=== PATIENT | female | born 1985 | race Caucasian/White ===

== ENCOUNTER 2020-08-29 20:02 | Emergency (ER) | payer OTHER | END 2020-08-29 23:43 | disposition home or self-care (01) | LOC: ED 20:02 | DX: N93.8 Other specified abnormal uterine and vaginal bleeding (principal); Z88.5 Allergy status to narcotic agent | CPT/HCPCS: 80053; 81001; 83690; 84703; 85025; 85610; 85730; 99284 ==

== ENCOUNTER 2021-10-02 08:14 | Emergency (ER) | payer OTHER ==
[~2021-10-02] VITALS: Ht 170.2 cm; Wt 77.1 kg
[2021-10-02] MEDS ORDERED: PREDNISONE20 MG PO (11:03)
--- NOTE | 2021-10-04 15:56 | EKG ---
[facility] [address] [place] [address] Signed Normal sinus rhythm with sinus arrhythmia Normal ECG No previous ECGs available Confirmed by CATA CASTELLANOS MD ([id number]) on 10/04/2021 3:56:43 PM Electronically Signed By: CATA CASTELLANOS MD 10/04/21 1556 PATIENT NAME: KALA TAYLOR Electrocardiogram DATE OF : 83 PHYSICIAN: CATA CASTELLANOS MD REPORT #: [id number] REPORT IS CONFIDENTIAL AND NOT TO BE RELEASED WITHOUT AUTHORIZATION
== END 2021-10-02 11:44 | disposition home or self-care (01) ==
LOC: ED 08:14
DX: J45.909 Unspecified asthma, uncomplicated (principal); Z86.718 Personal history of other venous thrombosis and embolism; Z86.711 Personal history of pulmonary embolism; Z88.5 Allergy status to narcotic agent; Z20.822 Contact with and (suspected) exposure to COVID-19
CPT/HCPCS: 36415; 71260; 80048; 83880; 84484; 84703; 85025; 93005; 93010; 94640; 94664; 99285-25; 99406; C9803; J7512; Q9967; U0003

== ENCOUNTER 2023-06-15 09:15 | Emergency (ER) | payer OTHER ==
[~2023-06-15] VITALS: Ht 170.2 cm; Wt 92.0 kg
--- NOTE | ~2023-06-15 | EKG ---
[facility] [address] [facility] [place], [place] [address] Draft EK completed, results pending confirmation PATIENT NAME: KALA TAYLOR Electrocardiogram DATE OF : 83 PHYSICIAN: PRELIMINARY REPORT #: [id number] REPORT IS CONFIDENTIAL AND NOT TO BE RELEASED WITHOUT AUTHORIZATION
[~2023-06-15 09:15] MED LIST: PREDNISONE20 MG PO
[2023-06-15 09:37] LABS: BASOPHILS 0.7 % (0-2); EOSINOPHILS 1.1 % (0-6); HEMOGLOBIN 15.7 g/dL (12.0-18.0); LYMPHOCYTES 10.7 % (24-44); MCH 29.3 (27-36); MCHC 33.4 g/dl (30-36); MCV 87.7 fl (81-99); MONOCYTES 5.1 % (0-12); NEUTROPHILS 82.4 % (39-80); PLATELET COUNT 216 K/uL (140-440); RBC 5.36 M/ul (4.3-5.7); RDW 13.5 (10.5-15.0)
[2023-06-15 10:01] LABS: ALBUMIN 4.4 g/dL (3.4-5.0); ALBUMIN/GLOBULIN RATIO 1.16 (1.1-2.4); ALKALINE PHOSPHATASE 94 U/L (46-116); ALT (SGPT) 43 U/L (14-59); ANION GAP 18.4 (7-21); AST (SGOT) 22 U/L (15-37); BILIRUBIN, TOTAL 0.6 ng/dL (0.2-1.0); BUN/CREATININE RATIO 9.19 (6.0-28.6); CALCIUM 9.2 mg/dL (8.5-10.1); CARBON DIOXIDE 20 mmol/L (21-32); CHLORIDE 102 mmol/L (98-107); CREATININE, SERUM 0.87 mg/dL (0.55-1.02); GLOMERULAR FILTRATION RATE,EST 87 mL/min (>60); POTASSIUM 4.4 mmol/L (3.5-5.1); PROTEIN, TOTAL 8.2 g/dL (6.4-8.2); UREA NITROGEN 8 mg/dL (7-18)
[2023-06-15] MEDS ORDERED: ELIQUIS5 MG PO (11:26)
[2023-06-15 11:35] VITALS: BP 120/84
== END 2023-06-15 11:37 | disposition home or self-care (01) ==
LOC: ED 09:15
PROVIDERS: Emergency Medicine
DX: I82.422 Acute embolism and thrombosis of left iliac vein (principal); I82.412 Acute embolism and thrombosis of left femoral vein; Z88.5 Allergy status to narcotic agent
CPT/HCPCS: 36415; 71260; 80053; 84484; 84703; 85025; 85379; 93005; 93010; 93971; J1650; J7030; Q9967

== ENCOUNTER 2023-06-25 14:31 | Emergency (ER) | payer OTHER ==
[~2023-06-25] VITALS: Ht 170.2 cm; Wt 92.2 kg
[~2023-06-25 14:31] MED LIST changes: +ELIQUIS5 MG PO
--- OUTSIDE RECORDS SUMMARY | 2023-06-25 14:38 | XMS ---
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 ECrissy VISIT COUNT (12 MO.) [address] [place] [address] TOTAL 2 NOTE: Visits indicate total known visits. ED/UCC VISIT TRACKING (12 MO.) 06/25/2023 14:[address] [facility] [place] TYPE: Emergency COMPLAINT: - L LEG SWELLING/PAIN 06/15/2023 09:15 [facility] [place] TYPE: Emergency COMPLAINT: - L LEG SWOLLEN, POSS BLOODCLOT DIAGNOSES: - Acute embolism and thrombosis of left femoral vein - Acute embolism and thrombosis of left iliac vein - Allergy status to narcotic agent - Other specified soft tissue disorders INPATIENT VISIT TRACKING (12 MO.) No inpatient visits to display in this time frame [id number]
[2023-06-25 15:20] LABS: BASOPHILS 0.8 % (0-2); EOSINOPHILS 2.8 % (0-6); HEMATOCRIT 42.9 % (35.0-50.0); HEMOGLOBIN 14.3 g/dL (12.0-18.0); LYMPHOCYTES 17.4 % (24-44); MCH 29.1 (27-36); MCHC 33.3 g/dl (30-36); MCV 87.4 fl (81-99); MONOCYTES 5.3 % (0-12); NEUTROPHILS 73.7 % (39-80); PLATELET COUNT 345 K/uL (140-440); RBC 4.91 M/ul (4.3-5.7); RDW 13.3 (10.5-15.0)
[2023-06-25 15:30] LABS: ALBUMIN 4.1 g/dL (3.4-5.0); ALBUMIN/GLOBULIN RATIO 1.08 (1.1-2.4); ANION GAP 13.3 (7-21); BILIRUBIN, TOTAL 0.5 ng/dL (0.2-1.0); BUN/CREATININE RATIO 7.5 (6.0-28.6); CALCIUM 8.8 mg/dL (8.5-10.1); CREATININE, SERUM 0.8 mg/dL (0.55-1.02); POTASSIUM 3.3 mmol/L (3.5-5.1); PROTEIN, TOTAL 7.9 g/dL (6.4-8.2)
[2023-06-25 17:00] VITALS: BP 139/91
--- NOTE | 2023-06-25 22:52 | EKG ---
[facility] [address] [place] [address] Signed Normal sinus rhythm Normal ECG When compared with ECG of 15-JUN-2023 09:36, No significant change was found Confirmed by Angle Valdez MD () on 06/25/2023 10:51:58 PM Electronically Signed By: ANGLE VALDEZ MD 06/25/23 2252 PATIENT NAME: KALA TAYLOR Electrocardiogram DATE OF : 83 PHYSICIAN: ANGLE VALDEZ MD REPORT #: [id number] REPORT IS CONFIDENTIAL AND NOT TO BE RELEASED WITHOUT AUTHORIZATION
== END 2023-06-25 17:00 | disposition home or self-care (01) ==
LOC: ED 14:31
PROVIDERS: Emergency Medicine
DX: I82.402 Acute embolism and thrombosis of unspecified deep veins of left lower extremity (principal); R06.02 Shortness of breath; Z88.5 Allergy status to narcotic agent; Z79.01 Long term (current) use of anticoagulants; Z86.711 Personal history of pulmonary embolism
CPT/HCPCS: 36415; 71260; 80053; 84703; 85025; 93005; 93010; 99285-25; Q9967

== ENCOUNTER 2023-12-26 19:21 | Emergency (ER) | payer OTHER ==
[~2023-12-26] VITALS: Ht 170.2 cm; Wt 92.0 kg
--- OUTSIDE RECORDS SUMMARY | 2023-12-26 19:28 | XMS ---
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 ECrissy VISIT COUNT (12 MO.) [address] [place] [address] TOTAL 4 NOTE: Visits indicate total known visits. ED/UCC VISIT TRACKING (12 MO.) 12/26/2023 19:22 [facility] [place] TYPE: Emergency COMPLAINT: - LOWER BACK PAIN 12/08/2023 09:58 [facility] [place] TYPE: Emergency COMPLAINT: - HEAD PAIN, CONFUSION, HANDS TINGLING DIAGNOSES: - Allergy status to narcotic agent - Headache, unspecified - group home (current) use of anticoagulants 06/25/2023 14:32 [facility] [place] TYPE: Emergency COMPLAINT: - L LEG SWELLING/PAIN DIAGNOSES: - Acute embolism and thrombosis of unspecified deep veins of left lower extremity - Allergy status to narcotic agent - group home (current) use of anticoagulants - Other specified soft tissue disorders - Personal history of pulmonary embolism - Shortness of breath 06/15/2023 09:15 [facility] [place] TYPE: Emergency COMPLAINT: - L LEG SWOLLEN, POSS BLOODCLOT DIAGNOSES: - Acute embolism and thrombosis of left femoral vein - Acute embolism and thrombosis of left iliac vein - Allergy status to narcotic agent - Other specified soft tissue disorders INPATIENT VISIT TRACKING (12 MO.) No inpatient visits to display in this time frame [email or web address]
[2023-12-26] MEDS ORDERED: diazePAM 10 MG/2 ML SYR IM ONE (20:00)
[2023-12-26] MEDS ORDERED: KETOROLAC TROMETHAMINE 60 MG/2 ML VIAL IM ONE (20:00)
[2023-12-26 20:46] LABS: BILIRUBIN, URINE NEGATIVE (negative); BLOOD/HGB, URINE TRACE-I (Negative); KETONE, URINE NEGATIVE (Negative); LEUK ESTERASE, URINE TRACE (negative); NITRITE, URINE NEGATIVE (negative)
[2023-12-26 21:01] LABS: BACTERIA, URINE 1+ /hpf (negative); CRYSTALS, URINE NONE SEEN (0-1+); EPITHELIAL CELLS, URINE SQUAMOUS 1+ /lpf (0-1+)
[2023-12-26 21:02] LABS: CASTS, URINE NONE SEEN \\lpf; COLLECTION TYPE, URINE CLEAN CATCH; REFLEX CULTURE, URINE No (No)
[2023-12-26] MEDS ORDERED: MACROBID 100 M100 MG PO (21:36)
[2023-12-26] MEDS ORDERED: CYCLOBENZAPRINE10 MG PO (21:36)
[2023-12-26] MEDS ORDERED: CYCLOBENZAPRINE HCL 10 MG HOME.PACK PO ONE (21:45)
[2023-12-26] MEDS ORDERED: NITROFURANTOIN MONOHYD MACROCR 100 MG HOME.PACK PO ONE (21:45)
[2023-12-26] MEDS ORDERED: methylPREDNISolone 4 MG HOME.PACK PO ONE (21:45)
[2023-12-26 21:53] VITALS: BP 137/85
== END 2023-12-26 21:54 | disposition home or self-care (01) ==
LOC: ED 19:21
PROVIDERS: Family Medicine
DX: M41.9 Scoliosis, unspecified (principal); S39.012A Strain of muscle, fascia and tendon of lower back, initial encounter; N39.0 Urinary tract infection, site not specified; X58.XXXA Exposure to other specified factors, initial encounter; Z88.5 Allergy status to narcotic agent; Z79.01 Long term (current) use of anticoagulants
CPT/HCPCS: 72100; 81001; 84703; J1885; J3360

== ENCOUNTER 2024-04-05 12:10 | Emergency (ER) | payer OTHER ==
[~2024-04-05] VITALS: Ht 170.2 cm; Wt 94.2 kg
[~2024-04-05 12:10] MED LIST changes: +CYCLOBENZAPRINE10 MG PO; +MACROBID 100 M100 MG PO
[2024-04-05] MEDS ORDERED: AMITRIPTYLINE H50 MG PO (12:24)
[2024-04-05] MEDS ORDERED: DESVENLAFAXINE50 M3 PO (12:24)
[2024-04-05 13:45] VITALS: BP 127/85
== END 2024-04-05 14:00 | disposition home or self-care (01) ==
LOC: ED 12:10
DX: M25.461 Effusion, right knee (principal); Z88.5 Allergy status to narcotic agent; Z79.899 Other long term (current) drug therapy
CPT/HCPCS: 73560; 93971; 99284-25